=== PATIENT | female | born 2000 | race Caucasian/White ===

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

== ENCOUNTER 2020-09-30 23:11 | Inpatient (IN) ==
[2020-10-01] MEDS ORDERED: Lactated Ringers 1000 ml BAG 1,000 ML IV ONE (00:08)
[2020-10-01] MEDS ORDERED: Penicillin G Potassium IV 5,000,000 UNITS in NS 0.9% 100 ml BAG 100 ML IVPB ONE (00:08)
[2020-10-01 00:37] LABS: ABS Basophils 0.1 10^3/ul (0-0.2); ABS Eosinophils 0.1 10^3/ul (0-0.6); ABS Lymphocytes 2.4 10^3/ul (1.0-4.8); ABS Monocytes 0.8 10^3/ul (0-0.8); ABS Neutrophils 8.2 10^3/ul (1.5-7.7); Eosinophil % 0.5 %; Hematocrit 35 % (35-47); Lymphocyte % 20.4 %; Mean Corpuscular HGB Conc 34 g/dL (31-36); Mean Corpuscular Hemoglobin 32 pg (27-31); Mean Corpuscular Volume 94 fL (80-97); Mean Platelet Volume 9.5 fL (7.4-10.4); Platelet Count 221 10^3/uL (150-450); Red Blood Count 3.79 10^6 /uL (3.70-4.87); Red Cell Distribution Width 14 % (10-15); White Blood Count 11.6 10^3/uL (3.5-10.8)
[2020-10-01] MEDS: Oxytocin in LR 20 UNITS/1,000 ML BAG IVPB SCH ×2 (00:42→16:13)
[2020-10-01 00:57] LABS: Urine Benzodiazepine Screen None Detected (None Detect); Urine Cannabinoids Screen None Detected (None Detect); Urine Opiates Screen None Detected (None Detect)
[2020-10-01] MEDS: Penicillin G Potassium IV 3,000,000 UNITS in NS 0.9% 100 ml BAG 100 ML IVPB SCH ×5 (04:35→20:24)
[2020-10-01] MEDS: Lactated Ringers 1000 ml BAG 1,000 ML IV SCH ×2 (12:25→20:24)
[2020-10-01] MEDS ORDERED: Ondansetron 4 mg VIAL 2 MG/ML 2 ml VIAL ONE (23:57)
[2020-10-02] MEDS ORDERED: Glycerin ADULT 2.4 gm SUPP PR PRN (00:15)
[2020-10-02] MEDS ORDERED: Measles, Mumps,Rubella VACC 0.5 ML/VIAL SUBCUT ONE (00:15)
[2020-10-02] MEDS ORDERED: Dibucaine 1% OINT 28.35 GM TUBE PR PRN (00:15)
[2020-10-02] MEDS ORDERED: Methylergonovine 0.2 mg AMPULE 1 ml AMP IM ONE (00:15)
[2020-10-02] MEDS ORDERED: Witch Hazel PAD JAR TOPICAL PRN (00:15)
[2020-10-02] MEDS ORDERED: Lactated Ringers 1000 ml BAG 1,000 ML IV SCH (01:00)
[2020-10-02] MEDS ORDERED: Oxytocin in LR 20 UNITS/1,000 ML BAG IVPB SCH (01:00)
[2020-10-02] MEDS: Penicillin G Potassium IV 3,000,000 UNITS in NS 0.9% 100 ml BAG 100 ML IVPB SCH (07:24)
[2020-10-02 07:42] LABS: ABS Basophils 0.1 10^3/ul (0-0.2); ABS Lymphocytes 1.5 10^3/ul (1.0-4.8); ABS Monocytes 1.4 10^3/ul (0-0.8); ABS Neutrophils 13.4 10^3/ul (1.5-7.7); Eosinophil % 0.1 %; Hematocrit 28 % (35-47); Hemoglobin 9.6 g/dL (12.0-16.0); Lymphocyte % 9.4 %; Mean Corpuscular HGB Conc 35 g/dL (31-36); Mean Corpuscular Hemoglobin 32 pg (27-31); Mean Corpuscular Volume 92 fL (80-97); Platelet Count 175 10^3/uL (150-450); Red Blood Count 3.02 10^6 /uL (3.70-4.87); Red Cell Distribution Width 14 % (10-15); White Blood Count 16.3 10^3/uL (3.5-10.8)
[2020-10-03 08:51] VITALS: BP 117/64
[2020-10-03] MEDS ORDERED: Varicella Virus Vaccine Live 0.5 ML VIAL SUBCUT ONE (13:30)
== END 2020-10-03 19:08 | disposition home or self-care (01) | DRG 560 ==
LOC: MCHOBOUT 23:11 → MCHOB 23:57
PROVIDERS: ADMIT Midwife; ATTEND Midwife

== ENCOUNTER 2022-07-16 10:43 | Inpatient (IN) ==
[2022-07-16] MEDS ORDERED: Buffered Lidocaine 1% SYRIN 1 ml INTRADERM ONE (11:56)
[2022-07-16] MEDS ORDERED: Lactated Ringers 1000 ml BAG 1,000 ML IV ONE (11:56)
[2022-07-16] MEDS ORDERED: Lactated Ringers 1000 ml BAG 1,000 ML IV SCH (12:00)
[2022-07-16] MEDS ORDERED: Oxytocin in LR 20,000 MILLI.UNIT/1,000 ML BAG IV SCH ×2 (12:00→22:30)
[2022-07-16 14:01] LABS: ABS Lymphocytes 1.7 10^3/ul (1.0-4.8); ABS Monocytes 0.5 10^3/ul (0-0.8); ABS Neutrophils 7.2 10^3/ul (1.5-7.7); Eosinophil % 0.2 %; Hematocrit 34 % (35-47); Hemoglobin 11.4 g/dL (12.0-16.0); Lymphocyte % 17.8 %; Mean Corpuscular HGB Conc 34 g/dL (31-36); Mean Corpuscular Hemoglobin 30 pg (27-31); Mean Corpuscular Volume 90 fL (80-97); Mean Platelet Volume 8.4 fL (7.4-10.4); Platelet Count 216 10^3/uL (150-450); Red Blood Count 3.76 10^6 /uL (3.70-4.87); Red Cell Distribution Width 13 % (10-15); White Blood Count 9.5 10^3/uL (3.5-10.8)
[2022-07-16 14:19] LABS: Urine Benzodiazepine Screen None Detected (None Detect); Urine Cannabinoids Screen None Detected (None Detect); Urine Opiates Screen None Detected (None Detect)
[2022-07-16] MEDS ORDERED: Dibucaine 1% OINT 28.35 GM TUBE PR PRN (22:22)
[2022-07-16] MEDS ORDERED: Witch Hazel PAD JAR TOPICAL PRN (22:22)
[2022-07-16] MEDS ORDERED: Glycerin ADULT 2.4 gm SUPP PR PRN (22:22)
[2022-07-17 06:47] LABS: ABS Lymphocytes 1.9 10^3/ul (1.0-4.8); ABS Monocytes 0.7 10^3/ul (0-0.8); ABS Neutrophils 8.9 10^3/ul (1.5-7.7); Eosinophil % 0.1 %; Hematocrit 30 % (35-47); Hemoglobin 9.7 g/dL (12.0-16.0); Lymphocyte % 16.7 %; Mean Corpuscular HGB Conc 33 g/dL (31-36); Mean Corpuscular Hemoglobin 30 pg (27-31); Mean Corpuscular Volume 92 fL (80-97); Mean Platelet Volume 8.3 fL (7.4-10.4); Platelet Count 193 10^3/uL (150-450); Red Blood Count 3.21 10^6 /uL (3.70-4.87); Red Cell Distribution Width 14 % (10-15); White Blood Count 11.6 10^3/uL (3.5-10.8)
[2022-07-17 17:56] VITALS: BP 112/75
== END 2022-07-17 22:50 | disposition home or self-care (01) | DRG 560 ==
LOC: MCHOBOUT 10:43 → MCHOB 11:56
PROVIDERS: ADMIT Midwife; ATTEND Midwife